=== PATIENT | male | born 1930 | race African-American/Black ===

== ENCOUNTER 2016-12-09 10:35 | Emergency (ER) | payer MEDICARE, MEDICAID ==
[~2016-12-09] VITALS: Ht 193 cm; Wt 84.8 kg
[2016-12-09] MEDS ORDERED: ALTA5CAP3 PO (10:49)
--- NOTE | 2016-12-09 11:53 | REP ---
PA and lateral chest: Comparison 04/17/2016. There are two small horizontal linear scars in the left mid lung, unchanged. There are no acute infiltrates or effusions. There are no masses. The lung gregg otherwise clear and unchanged. The cardiac size is normal. The bryce, mediastinum, and bony thorax are unremarkable and unchanged. Impression: Essentially negative PA and lateral chest. Chronic small parenchymal scars are incidentally noted on the left. Signed by Cade Hamilton MD 12/09/2016 11:45 A
[2016-12-09 11:55] LABS: BASO % 0.6 % (0.0-1.0); EOS % 1.2 % (0.0-3.0); LARGE UNSTAINED CELL # 0.2 K/mm3 (0.0-0.4); LARGE UNSTAINED CELL % 3.9 % (0.0-4.0); LYMPH # 1.5 K/mm3 (1.5-4.5); LYMPH % 36.9 % (24.0-44.0); MEAN CORPUSCULAR HEMOGLOBIN 31.3 pg (27.0-33.0); MEAN CORPUSCULAR HGB CONC 33.5 g/dl (32.0-36.5); MEAN CORPUSCULAR VOLUME 93.4 fl (80.0-96.0); MONO # 0.3 K/mm3 (0.0-0.8); MONO % 6.9 % (0.0-5.0); NEUTROPHILS % 50.5 % (36.0-66.0); PLATELET COUNT, AUTOMATED 200 k/mm3 (150-450); RED CELL DISTRIBUTION WIDTH 13.3 % (11.5-14.5)
[2016-12-09 12:07] LABS: ANION GAP 10 MEQ/L (8-16); BLOOD UREA NITROGEN 23 MG/DL (7-18); CALCIUM LEVEL 8.8 MG/DL (8.8-10.2); CARBON DIOXIDE LEVEL 25 MEQ/L (21-32); CHLORIDE LEVEL 103 MEQ/L (98-107); CREATININE FOR GFR 1.32 MG/DL (0.70-1.30); GLOMERULAR FILTRATION RATE > 60.0 (>35); GLUCOSE, FASTING 117 MG/DL (83-110); SODIUM LEVEL 138 MEQ/L (136-145)
[2016-12-09 12:37] LABS: ALBUMIN 3.7 GM/DL (3.2-5.2); ALKALINE PHOSPHATASE 97 U/L (45-117); ALT/SGPT 29 U/L (12-78); AST/SGOT 32 U/L (15-37); BILIRUBIN,DIRECT 0.2 MG/DL (0.0-0.2); BILIRUBIN,TOTAL 0.6 MG/DL (0.2-1.0); TOTAL PROTEIN 7.8 GM/DL (6.4-8.2)
[2016-12-09] MEDS ORDERED: TESS100C PO (12:41)
[2016-12-09 13:09] VITALS: BP 129/80
== END 2016-12-09 13:11 | disposition home or self-care (01) ==
LOC: M ED 11:07
DX: J06.9 Acute upper respiratory infection, unspecified (principal); I10 Essential (primary) hypertension; Z79.899 Other long term (current) drug therapy

== ENCOUNTER 2016-12-12 11:15 | Emergency (ER) | payer MEDICARE, MEDICAID ==
[~2016-12-12] VITALS: Ht 182.9 cm; Wt 81.6 kg
[~2016-12-12 11:15] MED LIST: ALTA5CAP3 PO; TESS100C PO
[2016-12-12 15:18] VITALS: BP 112/74
== END 2016-12-12 15:20 | disposition home or self-care (01) ==
LOC: M ED 12:17
DX: Z71.1 Person with feared health complaint in whom no diagnosis is made (principal)

== ENCOUNTER 2017-02-05 11:50 | Emergency (ER) | payer MEDICARE, MEDICAID ==
[~2017-02-05] VITALS: Ht 182.9 cm; Wt 85.7 kg
[2017-02-05 11:51] VITALS: BP 149/97
[2017-02-05] MEDS ORDERED: TYLE325T5 PO (12:16)
== END 2017-02-05 12:30 | disposition home or self-care (01) ==
LOC: M ED 12:23
DX: M54.31 Sciatica, right side (principal); S00.83XA Contusion of other part of head, initial encounter; X58.XXXA Exposure to other specified factors, initial encounter; Y92.89 Other specified places as the place of occurrence of the external cause; Y93.89 Activity, other specified; Y99.9 Unspecified external cause status

== ENCOUNTER 2017-05-20 15:57 | Emergency (ER) | payer MEDICARE, MEDICAID ==
[~2017-05-20 15:57] MED LIST changes: +ALTA1CAP3 PO; -ALTA5CAP3 PO; +TYLE325T5 PO
[2017-05-20 16:53] LABS: BASO % 0.2 % (0.0-1.0); EOS # 0.2 K/mm3 (0.0-0.50); EOS % 3.2 % (0.0-3.0); LARGE UNSTAINED CELL # 0.1 K/mm3 (0.0-0.4); LYMPH # 1.9 K/mm3 (1.5-4.5); LYMPH % 41.7 % (24.0-44.0); MEAN CORPUSCULAR HEMOGLOBIN 32.1 pg (27.0-33.0); MEAN CORPUSCULAR HGB CONC 33.1 g/dl (32.0-36.5); MEAN CORPUSCULAR VOLUME 97.1 fl (80.0-96.0); MONO # 0.3 K/mm3 (0.0-0.8); MONO % 5.8 % (0.0-5.0); NEUTROPHILS # 2.1 K/mm3 (1.8-7.7); PLATELET COUNT, AUTOMATED 236 k/mm3 (150-450); RED CELL DISTRIBUTION WIDTH 13.6 % (11.5-14.5); WHITE BLOOD COUNT 4.5 K/mm3 (4.0-10.0)
[2017-05-20 17:11] LABS: INR 1.01
[2017-05-20 17:17] LABS: ALBUMIN 3.5 GM/DL (3.2-5.2); ALBUMIN/GLOBULIN RATIO 0.88 (1.00-1.93); ALKALINE PHOSPHATASE 94 U/L (45-117); ALT/SGPT 22 U/L (12-78); ANION GAP 6 MEQ/L (8-16); AST/SGOT 23 U/L (15-37); BILIRUBIN,DIRECT 0.1 MG/DL (0.0-0.2); BILIRUBIN,TOTAL 0.4 MG/DL (0.2-1.0); BLOOD UREA NITROGEN 18 MG/DL (7-18); CALCIUM LEVEL 9.1 MG/DL (8.8-10.2); CARBON DIOXIDE LEVEL 26 MEQ/L (21-32); CHLORIDE LEVEL 109 MEQ/L (98-107); CREATININE FOR GFR 1.11 MG/DL (0.70-1.30); GLOMERULAR FILTRATION RATE > 60.0 (>35); GLUCOSE, FASTING 67 MG/DL (83-110); POTASSIUM SERUM 3.7 MEQ/L (3.5-5.1); SODIUM LEVEL 141 MEQ/L (136-145); TOTAL PROTEIN 7.5 GM/DL (6.4-8.2)
--- NOTE | 2017-05-20 17:33 | REP ---
Portable chest x-ray: Single view: History: Chest pain. Comparison chest x-ray: 12/09/2016. Findings: EKG monitoring electrodes overlie the chest. Heart is not enlarged. The aorta is calcific and tortuous. There is mild linear fibrosis in the left perihilar region. Left hemidiaphragm is slightly elevated unchanged. Pulmonary vasculature is not increased. Impression: Mild left perihilar fibrosis and slightly elevated left hemidiaphragm unchanged. No acute disease. Signed by Nick Contreras MD 05/21/2017 08:30 A
[2017-05-20 22:30] VITALS: BP 155/93
--- NOTE | 2017-05-21 10:39 | ECGEPIP ---
Stationary ECG Study [facility] - ED Test Date: 2017-05-20 Pat Name: BRIAN ESCALANTE Department: Room: - Gender: M [employer]: byron : [id number] Requested By: Rabia Schwartz Order Number: [id number] Reading MD: Rabia Schwartz Measurements Intervals Raymond Rate: 71 P: 34 WA: 208 QRS: -8 QRSD: 97 T: 28 QT: 392 QTc: 426 Interpretive Statements SINUS RHYTHM NSTTW ABNORMALITY DECREASED RATE 02/07/14 Electronically Signed On 05-21-2017 10:39:09 EDT by Rabia Schwartz
== END 2017-05-20 23:26 | disposition home or self-care (01) ==
LOC: M ED 15:57 → EDBD 15:57 → M ED 23:26
DX: R42 Dizziness and giddiness (principal); R55 Syncope and collapse; I25.10 Atherosclerotic heart disease of native coronary artery without angina pectoris; I10 Essential (primary) hypertension